=== PATIENT | male | born 2000 | race Asian ===

== ENCOUNTER 2022-03-03 09:42 | Day surgery (SDC) | payer OTHER ==
[2022-03-01 11:02] LABS: COVID AG,FIA SOURCE NASOPHARYNGEAL
[~2022-03-03] VITALS: Ht 175.3 cm; Wt 88.6 kg
[~2022-03-03 09:42] MED LIST: RINGERS SOLUTION,LACTATED 1,000 ML IV ONE
[2022-03-03] MEDS ORDERED: BUPIVACAINE HCL/PF 0.5% 30 ML VIAL ONE (10:15)
[2022-03-03] MEDS ORDERED: LIDOCAINE 2%/EPI 1:200,000/PF 20 ML VIAL ONE (10:15)
[2022-03-03 10:27] LABS: BASOPHILS % (AUTO) 0.4 % (0.0-2.0); EOSINOPHILS % (AUTO) 0.8 % (1.0-6.0); HEMATOCRIT 46.9 % (41-53); HEMOGLOBIN 15.8 g/dL (13.5-17.5); LYMPHOCYTES # (AUTO) 2.3 K/uL (1.0-4.8); LYMPHOCYTES % (AUTO) 16.2 % (22.0-44.0); MEAN CORPUSCULAR HEMOGLOBIN 29.5 pg (26.0-34.0); MEAN CORPUSCULAR HGB CONC 33.7 G/dL (31.0-37.0); MEAN CORPUSCULAR VOLUME 88 fL (80-100); MONOCYTES % (AUTO) 6.7 % (2.0-9.0); NEUTROPHILS # (AUTO) 10.8 K/uL (1.8-7.7); NEUTROPHILS % (AUTO) 75.9 % (40.0-70.0); PLATELET COUNT (AUTO) 250 K/uL (150-450); RED BLOOD CELL COUNT(AUTO) 5.36 MIL/uL (4.50-5.90)
[2022-03-03] MEDS ORDERED: RINGERS SOLUTION,LACTATED 1,000 ML IV ONE (10:30)
[2022-03-03 10:38] LABS: ANION GAP 7 mmol/L (8-16); CALCIUM, TOTAL 9.5 mg/dL (8.8-10.5); CARBON DIOXIDE 27 mmol/L (22-29); CHLORIDE 98 mmol/L (98-107); CREATININE 0.99 mg/dL (0.60-1.30); GLUCOSE,RANDOM 97 mg/dL (70-110); POTASSIUM 3.2 mmol/L (3.5-5.1); SODIUM SERUM 132 mmol/L (136-145); UREA NITROGEN, BLOOD 9 mg/dL (7-18)
[2022-03-03 10:40] LABS: GLOMERULAR FILTR. RATE CALC > 60 mL/min (>60)
[2022-03-03 10:43] LABS: ALANINE AMINOTRANSFERASE 101 U/L (12-78); ALBUMIN 4.4 g/dL (3.4-5.0); ALKALINE PHOSPHATASE 103 U/L (46-116); ASPARTATE AMINOTRANSFERASE 31 U/L (15-37); BILIRUBIN,TOTAL 0.9 mg/dL (0.1-1.0); TOTAL PROTEIN, SERUM 8.2 g/dL (6.4-8.2)
[2022-03-03] MEDS ORDERED: MetroNIDAZOLE 500 MG/NACL 100 ML IV ONE (11:23)
[2022-03-03] MEDS ORDERED: BACITRACIN 28 GM OINTMENT TP ONE (11:35)
[2022-03-03] MEDS ORDERED: LIDOCAINE 2% 30 ML JELLY ONE (11:35)
[2022-03-03] MEDS ORDERED: ONDANSETRON HCL 4 MG/2 ML VIAL IVP ONE (12:00)
[2022-03-03] MEDS ORDERED: DEXAMETHASONE SOD PHOS 4 MG/ML VIAL IVP ONE (12:00)
[2022-03-03] MEDS ORDERED: SUCCINYLCHOLINE CHLORIDE 20 MG/ML 10 ML VIAL IVP ONE (12:00)
[2022-03-03] MEDS ORDERED: LIDOCAINE/PF 2% 5 ML VIAL IM ONE (12:00)
[2022-03-03] MEDS ORDERED: FentaNYL CITRATE PF 100 MCG/2 ML VIAL IVP ONE (12:00)
[2022-03-03] MEDS ORDERED: HYDROmorphone HCL 2 MG/ML SYRINGE IVP ONE (12:00)
[2022-03-03] MEDS ORDERED: PROPOFOL 1% 20 ML VIAL IVP ONE (12:00)
[2022-03-03] MEDS ORDERED: MIDAZOLAM HCL 2 MG/2 ML VIAL IVP ONE (12:00)
[2022-03-03] MEDS ORDERED: MEPERIDINE-PF 25 MG/ML VIAL IVP PRN (12:15)
[2022-03-03] MEDS ORDERED: HYDROmorphone HCL 2 MG/ML SYRINGE IVP PRN (12:15)
[2022-03-03] MEDS ORDERED: FentaNYL CITRATE PF 100 MCG/2 ML VIAL IVP PRN (12:15)
[2022-03-03] MEDS ORDERED: OXYGEN THERAPY IH SCH (20:00)
== END 2022-03-03 13:30 | disposition home or self-care (01) ==
LOC: SURGERY 09:42
PROVIDERS: ATTEND Surgery
DX: K60.3 Anal fistula (principal); K64.4 Residual hemorrhoidal skin tags; K64.8 Other hemorrhoids; Z20.822 Contact with and (suspected) exposure to COVID-19; Z79.899 Other long term (current) drug therapy
CPT/HCPCS: 46260; 46020; 87426; 46270; 88304; 80053; 85025; 36415; C9803; J3490 ×3; J2704; J0690; J1100; J3010; J1170; J2250; J2405; J0330; J7120